=== PATIENT | female | born 1930 | race Caucasian/White ===

== ENCOUNTER → 2017-07-26 | Outpatient (CLI) | payer MEDICARE ==
[~2017-07-26] MED LIST: B Complex1 EAC2 PO; CENTRUM SILVER1 EAC2 PO; CHOL10002; DONE10 PO; HYDR1TAB94 PO; LEVSOD100 PO; LEVSOD125 PO; LOSA50 PO; LOSHYD PO; MEMA5TAB PO; UBID100 PO
== END | disposition home or self-care (01) ==
LOC: LAB SHORT 08:08 → PLD 08:08
DX: D48.5 Neoplasm of uncertain behavior of skin (principal)
CPT/HCPCS: 88305

== ENCOUNTER → 2019-02-01 | Outpatient (CLI) | payer MEDICARE | END | disposition home or self-care (01) | LOC: OLS 12:12 → LAB SHORT 12:12 | DX: D48.5 Neoplasm of uncertain behavior of skin (principal) | CPT/HCPCS: 88305 ==

== ENCOUNTER → 2019-06-25 | Outpatient (CLI) | payer MEDICARE | LOC: LAB 18:26 → LAB SHORT 18:26 | DX: R41.82 Altered mental status, unspecified (principal) | CPT/HCPCS: 87086 ==